=== PATIENT | male | born 1970 | race Caucasian/White ===

== ENCOUNTER 2017-03-22 05:52 | Inpatient (IN) | payer BC ==
[2017-03-21 12:52] VITALS: BMI 22.1
[2017-03-22] MEDS ORDERED: CeleCOXIB 100 MG CAP ONE ×2 (06:51→06:53)
[2017-03-22] MEDS ORDERED: Gabapentin 300 MG CAP ONE (06:51)
[2017-03-22] MEDS ORDERED: Acetaminophen 500 MG TAB ONE ×2 (06:53→06:54)
[2017-03-22] MEDS ORDERED: Lidocaine 2% w/Epinephrine 1:200K 20 ML VIAL ONE (06:56)
[2017-03-22] MEDS ORDERED: Bupivacaine/Epinephrine 0.25% 30 ML VIAL ONE (06:56)
[2017-03-22] MEDS ORDERED: Midazolam HCl 2 mg/2 ml Vial ONE (06:58)
[2017-03-22] MEDS ORDERED: Fentanyl 100 MCG/2 ML VIAL ONE ×4 (06:58→14:41)
[2017-03-22] MEDS ORDERED: Dexamethasone 4 mg/ml Vial ONE (06:58)
[2017-03-22 07:05] LABS: #Eosinphils 0.2 thou/uL (0.0-0.7); #Lymphocytes 1.9 thou/uL (1.20-3.40); #Monocytes 0.4 thou/uL (0.11-0.59); %Basophils 0.7 % (0.0-1.0); %Eosinophils 3.8 % (0.0-10.0); %Lymphocytes 28.6 % (21.0-51.0); %Monocytes 5.7 % (0.0-10.0); Hematocrit 46.7 % (42.0-52.0); Mean Platelet Volume 8.8 fL (7.4-10.4); Red Blood Cell (RBC) Count 4.78 mill/uL (4.70-6.10); White Blood Cell (WBC) Count 6.5 thou/uL (4.8-10.8)
[2017-03-22 07:11] LABS: Hemoglobin A1c 4.9 % (4.0-6.0)
[2017-03-22] MEDS ORDERED: Ketorolac Tromethamine 30 MG/ML VIAL ONE ×2 (07:17→14:27)
[2017-03-22 07:21] LABS: Anion Gap 9 mmol/L (10-20); BUN (Urea Nitrogen) 13 mg/dL (8.9-20.6); Calc. Creatinine Clearance 106 mL/min (70-130); Calcium 8.4 mg/dL (7.8-10.44); Carbon Dioxide 26 mmol/L (22-29); Chloride 107 mmol/L (98-107); Estimated GFR-MDRD 86
[2017-03-22] MEDS ORDERED: cefOXitin Sodium 2 GM, Syringe 1 ML in Sterile Water 10 ML SLOW IVP ONE (07:30)
[2017-03-22] MEDS ORDERED: Ondansetron HCl/PF 4 MG/2 ML Vial IVP PRN ×2 (10:55→16:23)
[2017-03-22] MEDS ORDERED: Promethazine HCl 25 MG/ML VIAL SLOW IVP PRN (10:55)
[2017-03-22] MEDS ORDERED: Promethazine HCl 25 MG/ML VIAL IM PRN ×2 (10:55→16:23)
[2017-03-22] MEDS ORDERED: D5 1/2 NS w/20 mEq KCL 1,000 ML ONE (11:16)
[2017-03-22] MEDS ORDERED: Promethazine HCl 25 MG/ML VIAL ONE (11:39)
[2017-03-22] MEDS ORDERED: Bupivacaine HCl 0.5%/Epinephrine 1:200,000/PF 30 ml Vial ONE (12:57)
[2017-03-22] MEDS ORDERED: Bupivacaine PF 0.5% 30 ML VIAL ONE (12:57)
--- NOTE | 2017-03-22 13:34 | OP ---
DATE OF PROCEDURE: 03/22/2017 PREOPERATIVE DIAGNOSIS: Small bowel stricture related to Crohn's disease. POSTOPERATIVE DIAGNOSES: Small bowel stricture related to Crohn's disease with jejuno-jejunal fistul a, multiple small bowel strictures, and a dense area of stricture and inflammation. PROCEDURE PERFORMED: Laparoscopic assisted small bowel resection, repair of small bowel fistula, Jocelyn álvarez-Loan stricturoplasty. SURGEON: Dr. Yadiel Menchaca ANESTHESIA: General endotracheal. INDICATIONS: The patient is a 47-year-old white male with a long history of Crohn's disease. He has progressive abdominal distention, cramping, nausea, pain and diarrhea. Recent CT scan has revealed a couple of areas of severely dilated small bowel consistent with stricture formation. He is taken t o the operating room at this time for laparoscopic evaluation and treatment. OPERATIVE PROCEDURE IN DETAIL: Informed consent was obtained. The patient taken to the operating ro om where general endotracheal anesthesia was obtained with the patient in supine position. Abdomen w as trimmed of hair, prepped with ChloraPrep, draped in sterile fashion. The colon SSI protocol was u sed throughout. A tap block had been placed preoperatively by Anesthesia. The patient was kept warm at the beginning of the case and throughout the case. Local anesthetic was infiltrated using 1% lidocaine with epine phrine and a 5 mm infraumbilical incision was created through which a Veress needle was passed into t he peritoneal cavity. Pneumoperitoneum was established using carbon dioxide up to a pressure of 15 m mHg. A 5 mm trocar port was passed through this same incision. Laparoscopic camera was passed throu gh this port. Under direct vision, two additional 5 mm ports were placed in the left lower abdomen. Utilizing these 3 ports, the bowel was explored from the ileocecal valve to the ligament of Treitz. The distal small bowel was essentially normal until I reached a segment that was densely adherent in the retroperitoneum. This area had dominant inflammation with creeping fat and was obviously thicke coleman. Just proximal to this area was severely dilated small bowel that appeared to be capable of dist ending to 8-10 cm in diameter. This distention extended up just about to the ligament of Treitz. It appeared therefore that there was one dominant area of disease and this is the area for which resect ion was planned as this was too long to be amenable to a stricturoplasty. A 7 cm supraumbilical incision was created and Justin wound retractor was passed through this into th e abdominal cavity. The area of dominant disease was easily mobilized up extracorporeal. There was one segment that was adherent to the retroperitoneum and as I evaluated this it became apparent that this was fistulized to this segment of the very proximal jejunum to the posterior aspect of the bowel just distal to the ligament of Treitz. I clamped both sides of this fistula and divided it. Each s valentino was oversewed with 2-0 silk suture. In later evaluation of the proximal segment there was no thi ckening or irritation at this area, I believe that this was eroded into by the diseased segment. I t herefore inverted that the fistulized segment with a series of interrupted sutures of 3-0 Prolene. Evaluation of the remainder of it revealed the dense area of inflammatory change with dominant dilata tion proximal to this. I identified normal bowel distal to this and the dilated bowel proximal and d ecided to resect this one segment. This was probably about 9-10 inches in length. Proximal to this, there were 2 areas of some degree of stricture formation. One of them was less impressive and appea red to have an adequate lumen and I decided not to do anything about this. The other was the narrow enough that I felt that it was a matter time before this also became stenotic. This was about 105 cm distal to the ligament of Treitz. The area of the stricture that I was going to repair was probably about 30-40 cm proximal to the area to be resected. The mesentery was very thickened and inflamed and hypervascular. I started taking this down using e LigaSure and the LigaSure was not providing adequate hemostasis. I therefore divided the mesentery between clamps and 2-0 silk ties. I divided the bowel up to the bowel wall proximal and distal. At this point, I placed sterile towels circumferentially and used segregated instruments. A double sta pled anastomosis was created using a ANTONIO-75 stapler between the 2 areas that were selected. The ente rotomy was excluded with a second firing of the stapler. I actually had to use 3 fires to get across the large dilated proximal segment. The anastomosis was buttressed with 3-0 silk sutures and the me sentery defect was closed with 3-0 silk sutures. The anastomosis appeared to be widely patent. Attention was turned to the strictureplasty. I performed a Gregulicz stricturoplasty by creat ing a longitudinal incision across the area of the stricture. This was about 4 cm in length. I then closed this transversely using a series of interrupted full thickness sutures of 3-0 silk. The lume n appeared to be adequate when I completed this and the area was hemostatic. The bowel was returned to the abdominal cavity and laparoscopy was reinstituted. I thoroughly irriga leobardo the abdominal cavity. There had certainly been some blood loss during the operation so all old b lood was aspirated and irrigated. There was no evidence of any bowel spillage at any point during operation. Therefore, reinstituted laparoscopy instruments were removed and gloves were changed. After completing the irrigation aspiration, all ports and instruments were removed under direct visio n. Pneumoperitoneum was carefully evacuated. The abdominal wall was thoroughly cleansed. Gown and gloves were changed and participating personnel cleansed their hands again. The closing tra y was utilized. New towels were placed. The fascia was then closed with a running suture of loop #1 PDS. The wound was thoroughly irrigated with 2 liters of saline. The remainder of the wound was cl osed with 3-0 Vicryl and 4-0 Monocryl and other port sites were closed with 4-0 Monocryl. Dermabond was placed externally. There were no complications. The patient tolerated the procedure well and wa s taken to recovery room in stable condition.
[2017-03-22] MEDS ORDERED: Ondansetron HCl/PF 4 MG/2 ML Vial ONE (14:27)
[2017-03-22] MEDS ORDERED: Propofol 200 MG/20 ML VIAL ONE (14:27)
[2017-03-22] MEDS ORDERED: Dexamethasone 20 MG/5 ML VIAL ONE (14:27)
[2017-03-22] MEDS ORDERED: hydrALAZINE 20 MG/ML VIAL SLOW IVP PRN (16:23)
[2017-03-22] MEDS ORDERED: Morphine 4 MG/ML VIAL SLOW IVP PRN ×2 (16:45)
[2017-03-22] MEDS: Acetaminophen 1,000 MG in Premix Bag 1 BAG IVPB SCH ×2 (18:40→23:49)
[2017-03-22] MEDS: D5 1/2 NS w/20 mEq KCL 1,000 ML IV SCH ×2 (18:40→21:23)
[2017-03-22] MEDS: Ketorolac Tromethamine 30 MG/ML VIAL IVP SCH ×2 (18:40→23:50)
[2017-03-22] MEDS: Famotidine/PF 20 mg/2ml Vial SLOW IVP SCH (21:20)
[2017-03-22] MEDS: Enoxaparin Sodium 40 MG/0.4 ML SYRINGE SC SCH (21:20)
[2017-03-22] MEDS: Famotidine 20 MG TAB PO SCH (21:31)
[2017-03-23] MEDS: Acetaminophen 1,000 MG in Premix Bag 1 BAG IVPB SCH ×2 (05:33→11:29)
[2017-03-23] MEDS: Ketorolac Tromethamine 30 MG/ML VIAL IVP SCH ×3 (05:33→17:34)
[2017-03-23 05:38] LABS: #Lymphocytes 1.1 thou/uL (1.20-3.40); #Monocytes 0.7 thou/uL (0.11-0.59); #Neutrophils 9.6 thou/uL (1.40-6.50); %Basophils 0.1 % (0.0-1.0); %Eosinophils 0.2 % (0.0-10.0); %Lymphocytes 9.8 % (21.0-51.0); Hematocrit 43.8 % (42.0-52.0); Mean Platelet Volume 9.1 fL (7.4-10.4); Red Blood Cell (RBC) Count 4.49 mill/uL (4.70-6.10); White Blood Cell (WBC) Count 11.4 thou/uL (4.8-10.8)
[2017-03-23] MEDS: D5 1/2 NS w/20 mEq KCL 1,000 ML IV SCH ×3 (05:43→16:05)
[2017-03-23 05:57] LABS: Anion Gap 8 mmol/L (10-20); BUN (Urea Nitrogen) 9 mg/dL (8.9-20.6); Calc. Creatinine Clearance 121 mL/min (70-130); Calcium 8.5 mg/dL (7.8-10.44); Carbon Dioxide 26 mmol/L (22-29); Chloride 108 mmol/L (98-107); Estimated GFR-MDRD Greater than 90
[2017-03-23] MEDS: Famotidine 20 MG TAB PO SCH ×2 (08:15→20:26)
[2017-03-23] MEDS: Famotidine/PF 20 mg/2ml Vial SLOW IVP SCH ×2 (08:22→20:35)
[2017-03-23] MEDS ORDERED: HYDROcodone/Acetaminophen 7.5/325 mg Tablet PO PRN ×2 (10:57)
[2017-03-23] MEDS: Enoxaparin Sodium 40 MG/0.4 ML SYRINGE SC SCH (20:30)
[2017-03-24] MEDS: Ketorolac Tromethamine 30 MG/ML VIAL IVP SCH ×2 (00:20→05:54)
[2017-03-24] MEDS: D5 1/2 NS w/20 mEq KCL 1,000 ML IV SCH (05:56)
[2017-03-24] MEDS: Famotidine 20 MG TAB PO SCH (08:08)
[2017-03-24] MEDS: Famotidine/PF 20 mg/2ml Vial SLOW IVP SCH (08:08)
[2017-03-24 10:50] VITALS: BP 105/69; TEMP 98.3
--- NOTE | 2017-03-24 13:16 | DIS ---
DATE OF ADMISSION: 03/22/2017 DATE OF DISCHARGE: 03/24/2017 ADMISSION DIAGNOSIS: Severe strictures related to Crohn disease with severe abdominal pain. DISCHARGE DIAGNOSES: Fistula formation between loops of small bowel, severe inflammatory stricture o f a long segment of small bowel, and at least one short segment stricture within the proximal small b owel. OUTPATIENT PROCEDURES PERFORMED: Hand-assisted laparoscopic small bowel resection, repair of fistula and stricturoplasty. ADMISSION HISTORY: The patient is a 47-year-old white male with Crohn disease. He has severe progre ssive symptoms of abdominal pain and cramping. CT scan reveals markedly dilated segments of small josh wel consistent with stricture formation. He was taken to the operating room at this time for evaluat ion and treatment. HOSPITAL COURSE: He underwent uneventful surgery on the day of admission. There was one segment of this small bowel that was severely inflamed over the course of several inches. There was a fistula f rom this and the proximal small bowel that was taken down with repair of the proximal small bowel. I resected the severely inflamed segment and performed a stricturoplasty on another stricture proximal ly. He has had an uneventful postoperative course. He tolerated clear liquids yesterday and full liquids today, he has had no nausea or vomiting. He has had flatus, but has not yet had a bowel movement. He had a benign abdominal examination. He is afebrile. His vital signs are entirely normal. He is stable for discharge home at this time. He has required no narcotics in the past 24 hours. He will be given a discharge prescription for tramadol and asked to follow up with myself in 2 weeks for a ro utine followup.
== END 2017-03-24 10:19 | disposition home or self-care (01) | DRG 330 ==
LOC: SURG A 05:52 → SURG B 16:07
PROVIDERS: ADMIT Specialist; ATTEND Specialist
PROC: 0DB84ZZ Excision of Small Intestine, Percutaneous Endoscopic Approach (ICD-10-PCS; principal; 2017-03-22)
PROC: 0DQ84ZZ Repair Small Intestine, Percutaneous Endoscopic Approach (ICD-10-PCS; 2017-03-22)
PROC: 0DQA4ZZ Repair Jejunum, Percutaneous Endoscopic Approach (ICD-10-PCS; 2017-03-22)
PROC: 3E0T3BZ Introduction of Anesthetic Agent into Peripheral Nerves and Plexi, Percutaneous Approach (ICD-10-PCS; 2017-03-22)
DX: K50.812 Crohn's disease of both small and large intestine with intestinal obstruction (principal); K50.913 Crohn's disease, unspecified, with fistula
CPT/HCPCS: 36415; 36416; 80048; 83036; 85025; 88307; A4216; J0131; J0360; J0670; J0694; J1100; J1650; J1885; J2250; J2405; J2550; J2704; J3010; S0020; S0028

== ENCOUNTER 2021-08-06 13:26 | Outpatient (CLI) | payer OTHER | END 2021-08-06 13:27 | disposition home or self-care (01) | LOC: BICRAD 13:26 | PROVIDERS: ATTEND Internal Medicine | DX: K50.90 Crohn's disease, unspecified, without complications (principal) | CPT/HCPCS: 74018 ==

== ENCOUNTER 2023-02-01 07:48 | Outpatient (CLI) | payer OTHER | END 2023-02-01 07:49 | disposition home or self-care (01) | LOC: BICULT 07:48 | PROVIDERS: ATTEND Physician Assistant Medical | DX: R74.01 Elevation of levels of liver transaminase levels (principal); K76.0 Fatty (change of) liver, not elsewhere classified; K83.8 Other specified diseases of biliary tract; R16.1 Splenomegaly, not elsewhere classified | CPT/HCPCS: 76700 ==

== ENCOUNTER 2023-03-08 07:44 | Outpatient (CLI) | payer OTHER | END 2023-03-08 07:45 | disposition home or self-care (01) | LOC: SCSMRI 07:44 | PROVIDERS: ATTEND Physician Assistant Medical | DX: K83.8 Other specified diseases of biliary tract (principal); K76.0 Fatty (change of) liver, not elsewhere classified | CPT/HCPCS: 74183 ==